=== PATIENT | female | born 1985 | race Caucasian/White ===

== ENCOUNTER → 2020-02-22 | Outpatient (CLI) | payer SELFPAY ==
[~2020-02-22] MED LIST: CATHETER FLUSH 10 ML SYR IV PRN
--- NOTE | 2020-02-22 14:42 | Diagnostic Imaging Report ---
INDICATION: Right upper quadrant pain. Patient was administered 5.0 mCi technetium 99m Choletec intravenously and imaging over the abdomen was performed. After 60 minutes, patient ingested one can of Ensure and the gallbladder ejection fraction was calculated. There is homogeneous uptake of activity by the liver with prompt reflux of activity into the gallbladder and common duct. There is normal passage of activity into the small bowel. Gallbladder ejection fraction is normal at 55%. IMPRESSION: Normal HIDA scan and gallbladder ejection fraction. Dictated by: Dictated on workstation # [id number]
== END ==
LOC: CARD 11:54
PROVIDERS: ATTEND Family Medicine
DX: R10.11 Right upper quadrant pain (principal)
CPT/HCPCS: 78227; A9537

== ENCOUNTER 2021-01-04 00:43 | Emergency (ER) | payer SELFPAY ==
[~2021-01-04] VITALS: Ht 165.1 cm; Wt 86.4 kg
[2021-01-04 01:36] LABS: BILIRUBIN,URINE NEGATIVE (NEGATIVE); CLARITY,URINE CLEAR; COLOR,URINE YELLOW; GLUCOSE, URINE (UA) NEGATIVE (NEGATIVE); KETONES,URINE NEGATIVE (NEGATIVE); LEUKOCYTE ESTERASE ,URINE NEGATIVE (NEGATIVE); NITRITE,URINE NEGATIVE (NEGATIVE); PH,URINE 5.5 (5-9); PROTEIN,URINE NEGATIVE (NEGATIVE)
[2021-01-04 01:42] LABS: BACTERIA,URINE TRACE /HPF; RBC,URINE RARE /HPF; SQUAMOUS EPITHELIAL CELL,UR 0-2 /HPF; WBC,URINE RARE /HPF
[2021-01-04] MEDS ORDERED: FAMOTIDINE 20MG/2ML IV (PEPCID) IV STA (01:49)
--- NOTE | 2021-01-04 01:55 | ED Abdominal Pain ---
General Chief Complaint: Abdominal/GI Problems Stated Complaint: NAUSEA,VOMITING,BACK & STOMACH PAIN Nursing Triage Note: PRESENTS TO ROOM #6 VIA POV ACCOMPANIED BY FAMILY WITH C/O ABD DISCOMFORT NAUSEA ET VOMITING. STATES AFTER PO CONSUMPTION SHE EXPERIENCES NAUSEA ET VOMITING SHORTLY AFTER. STATES DISCOMFORT TO R UPPER QUADRANT RADIATING THROUGH TO BACK. STATES SX BEGAN ON 12/28/20. Sepsis Screen: No Definite Risk Source of Information: Patient Exam Limitations: No Limitations History of Present Illness Date Seen by Provider: Jan 04, 2021 Time Seen by Provider: 01:30 Initial Comments Patient presents ER by private conveyance from home with her mother and [employer] she has been having some pain throughout the day has been going on for the past several days anytime she eats something does not know what she eats. It was epigastric right upper quadrant and radiates through directly to through to her back at the same level. A year ago she had her gallbladder worked up with an ultrasound and HIDA scan by Dr. Jenkins which was unremarkable and no mention of stones. She does not drink alcohol significantly and does not have a history of pancreatitis. She has no history of indigestion or GERD. She took some Excedrin as well as a Percocet which did help her get some sleep last night. She rates the pain is about a 5 out of 10 presently constant. No change with positioning. Bowels moving normally no blood in the urine no history of kidney stones no dysuria dyspareunia or discharge. Allergies and Home Medications Allergies Coded Allergies: hydrocodone (Unverified Allergy, Unknown, 02/22/20) Patient Home Medication List Home Medication List Reviewed: Yes Review of Systems Review of Systems Constitutional: No chills, No diaphoresis EENTM: No Blurred Vision, No Double Vision Respiratory: Denies Cough, Denies Shortness of Air Cardiovascular: Denies Chest Pain, Denies Lightheadedness Gastrointestinal: See HPI; Denies Abdomen Distended; Abdominal Pain; Denies Blood Streaked Stools, Denies Constipated, Denies Diarrhea; Nausea Genitourinary: Denies Burning, Denies Discharge Musculoskeletal: No back pain, No joint pain All Other Systems Reviewed Negative Unless Noted: Yes Past Unsmhyz-Ygjayi-Ysoukf Hx Patient Social History Alcohol Use: Denies Use Smoking Status: Never a Smoker Recent Infectious Disease Expo: No Physical Exam Vital Signs Vital Signs - First Documented 01/04/21 01:15 Temp 36.1 Pulse 90 Resp 18 B/P (MAP) 136/92 (107) Pulse Ox 99 O2 Delivery Room Air Capillary Refill : Less Than 3 Seconds Height/Weight/BMI Height: '" Weight: lbs. oz. kg; 31.00 BMI Method: General Appearance: WD/WN, mild distress HEENT: PERRL/EOMI, pharynx normal Neck: full range of motion, normal inspection Respiratory: lungs clear, normal breath sounds, no respiratory distress, no accessory muscle use Cardiovascular: normal peripheral pulses, regular rate, rhythm, no edema Peripheral Pulses: 2+ Radial Pulses (R), 2+ Radial Pulses (L) Gastrointestinal: normal bowel sounds (Active), soft, tenderness (Mild epigastric and right upper quadrant tenderness without Enciso sign, Rovsing sign, McBurney's point tenderness, mesenteric signs.) Extremities: normal range of motion, normal inspection, normal capillary refill Neurologic/Psychiatric: alert, normal mood/affect, oriented x 3 Skin: normal color, warm/dry Progress/Results/Core Measures Results/Orders Lab Results Laboratory Tests Test 01/04/21 01:30 01/04/21 01:35 Range/Units Urine Color YELLOW Urine Clarity CLEAR Urine pH 5.5 5-9 Urine Specific Mammoth >=1.030 1.016-1.022 Urine Protein NEGATIVE NEGATIVE Urine Glucose (UA) NEGATIVE NEGATIVE Urine Ketones NEGATIVE NEGATIVE Urine Nitrite NEGATIVE NEGATIVE Urine Bilirubin NEGATIVE NEGATIVE Urine Urobilinogen 0.2 < = 1.0 MG/DL Urine Leukocyte Esterase NEGATIVE NEGATIVE Urine RBC (Auto) TRACE-I NEGATIVE Urine RBC RARE /HPF Urine WBC RARE /HPF Urine Squamous Epithelial Cells 0-2 /HPF Urine Crystals NONE /LPF Urine Bacteria TRACE /HPF Urine Casts NONE /LPF Urine Mucus SMALL H /LPF Urine Culture Indicated NO White Blood Count 12.4 H 4.3-11.0 10^3/uL Red Blood Count 4.31 3.80-5.11 10^6/uL Hemoglobin 13.0 11.5-16.0 g/dL Hematocrit 40 35-52 % Mean Corpuscular Volume 93 80-99 fL Mean Corpuscular Hemoglobin 30 25-34 pg Mean Corpuscular Hemoglobin Concent 32 32-36 g/dL Red Cell Distribution Width 13.2 10.0-14.5 % Platelet Count 273 130-400 10^3/uL Mean Platelet Volume 9.9 9.0-12.2 fL Immature Granulocyte % (Auto) 1 % Neutrophils (%) (Auto) 52 42-75 % Lymphocytes (%) (Auto) 27 12-44 % Monocytes (%) (Auto) 7 0-12 % Eosinophils (%) (Auto) 14 H 0-10 % Basophils (%) (Auto) 0 0-10 % Neutrophils # (Auto) 6.4 1.8-7.8 10^3/uL Lymphocytes # (Auto) 3.4 1.0-4.0 10^3/uL Monocytes # (Auto) 0.8 0.0-1.0 10^3/uL Eosinophils # (Auto) 1.7 H 0.0-0.3 10^3/uL Basophils # (Auto) 0.1 0.0-0.1 10^3/uL Immature Granulocyte # (Auto) 0.1 0.0-0.1 10^3/uL Neutrophils % (Manual) 55 % Lymphocytes % (Manual) 33 % Monocytes % (Manual) 3 % Eosinophils % (Manual) 8 % Basophils % (Manual) 0 % Band Neutrophils 1 % Blood Morphology Comment NORMAL Sodium Level 140 135-145 MMOL/L Potassium Level 4.5 3.6-5.0 MMOL/L Chloride Level 105 98-107 MMOL/L Carbon Dioxide Level 24 21-32 MMOL/L Anion Gap 11 5-14 MMOL/L Blood Urea Nitrogen 13 7-18 MG/DL Creatinine 0.88 0.60-1.30 MG/DL Estimat Glomerular Filtration Rate > 60 BUN/Creatinine Ratio 15 Glucose Level 105 70-105 MG/DL Calcium Level 9.5 8.5-10.1 MG/DL Corrected Calcium 9.3 8.5-10.1 MG/DL Total Bilirubin 0.4 0.1-1.0 MG/DL Aspartate Amino Transf (AST/SGOT) 26 5-34 U/L Alanine Aminotransferase (ALT/SGPT) 18 0-55 U/L Alkaline Phosphatase 72 40-136 U/L C-Reactive Protein High Sensitivity 1.10 H 0.00-0.50 MG/DL Total Protein 7.8 6.4-8.2 GM/DL Albumin 4.2 3.2-4.5 GM/DL Lipase 22 8-78 U/L My Orders Orders - RAYA,DAMARIS J Ua Culture If Indicated (01/04/21 00:53) Urine Bedside (01/04/21 00:53) Cbc With Automated Diff (01/04/21 01:49) Comprehensive Metabolic Panel (01/04/21 01:49) Hs C Reactive Protein (01/04/21 01:49) Lipase (01/04/21 01:49) Ed Iv/Invasive Line Start (01/04/21 01:49) Ns Iv 1000 Ml (Sodium Chloride 0.9%) (01/04/21 02:00) Lidocaine 2% Viscous 15 Ml (Xylocaine Vi (01/04/21 02:00) Antacid Suspension (Mylanta Suspension (01/04/21 02:00) Famotidine Injection (Pepcid Injection) (01/04/21 01:49) Manual Differential (01/04/21 01:35) Medications Given in ED Current Medications Medications Dose Ordered Sig/Jaime Route Start Time Stop Time Status Last Admin Dose Admin Al Hydrox/Mg Hydrox/Simethicone 30 ml ONCE ONCE PO 01/04/21 02:00 01/04/21 02:01 DC 01/04/21 02:07 30 ML Lidocaine HCl 15 ml ONCE ONCE PO 01/04/21 02:00 01/04/21 02:01 DC 01/04/21 02:07 15 ML Vital Signs/I&O 01/04/21 01:15 Temp 36.1 Pulse 90 Resp 18 B/P (MAP) 136/92 (107) Pulse Ox 99 O2 Delivery Room Air Blood Pressure Mean: 107 Progress Progress Note #1: Time: 01:59 Progress Note Differential includes PUD, gastritis, pancreatitis, biliary system or gallbladder. We will start with a GI cocktail and see if this helps her discomfort. She is not having any nausea at this time. Give her a liter of fluids. Discussed imaging and at this time she has a septic vital signs and nonsurgical abdominal exam. Progress Note #2: Time: 02:26 Progress Note Patient has no significant elevation in white count or CRP. She is not tender over her right lower quadrant. Sinusitis not completely ruled out however there is not very strong evidence for it. She does not have a surgical abdomen nor did she have septic vital signs. She received little to no relief from the GI cocktail. I still think she needs further work-up of her right upper quadrant and since ultrasound is not available at this time we are going to refer her to Dr. Franco, general surgery outpatient for more thorough evaluation. Return precautions were given. We will send her home with some Percocet and ondansetron to help manage symptoms. Departure Impression Primary Impression: Right upper quadrant abdominal pain Disposition: HOME, SELF-CARE Condition: Stable Departure-Patient Inst. Decision time for Depature: 02:15 Referrals: THIERRY FRANCO DANIEL J MD (PCP/Family) Primary Care Physician Patient Instructions: ANYA Murrell (DC) Add. Discharge Instructions: Encourage you to change your diet to avoid greasy, spicy foods or dairy, red meats etc. Stick to white meats, dark green leafy vegetables, high-fiber. Prilosec 40 mg daily for the next 2 to 4 weeks. Tums, Rolaids, Maalox, Mylanta etc. as necessary for stomach pain. Tylenol 650 mg every 8 hours as necessary for pain. Percocet 1 tablet every 4 hours for severe breakthrough pain. Ondansetron/Zofran 1 tablet every 6 hours under the tongue as necessary for nausea and/or vomiting. Return to the ER for fever, intractable pain, nausea or other worrisome symp toms. During business hours call Dr. Franco, general surgery and ask for a follow-up appointment within the next week or so to continue working up your right upper quadrant abdominal pain. All discharge instructions reviewed with patient and/or family. Voiced understanding. Scripts Omeprazole Magnesium (Prilosec Otc) 20 Mg Tablet.dr 40 MG PO DAILY for 30 Days, #60 TAB 0 Refills Prov: DAMARIS DOS SANTOS 01/04/21 Oxycodone HCl/Acetaminophen (Percocet 5-325 mg Tablet) 1 Each Tablet 1 TAB PO Q4H for PAIN-MODERATE MDD 6 TABS for 3 Days, #15 TAB 0 Refills Prov: DAMARIS DOS SANTOS 01/04/21 Ondansetron (Ondansetron Odt) 4 Mg Tab.rapdis 4 MG PO Q6H PRN for NAUSEA/VOMITING, #15 TAB 0 Refills Prov: DAMARIS DOS SANTOS 01/04/21 Copy Copies To 1: THIERRY FRANCO TITUS J Jan 04, 2021 01:55
[2021-01-04 01:57] LABS: BASOPHILS # (AUTO) 0.1 10^3/uL (0.0-0.1); BASOPHILS % (AUTO) 0 % (0-10); EOSINOPHILS # (AUTO) 1.7 10^3/uL (0.0-0.3); EOSINOPHILS % (AUTO) 14 % (0-10); HEMATOCRIT 40 % (35-52); LYMPHOCYTES # (AUTO) 3.4 10^3/uL (1.0-4.0); LYMPHOCYTES % (AUTO) 27 % (12-44); MEAN CORPUSCULAR HEMOGLOBIN 30 pg (25-34); MEAN CORPUSCULAR HGB CONC 32 g/dL (32-36); MEAN CORPUSCULAR VOLUME 93 fL (80-99); MEAN PLATELET VOLUME 9.9 fL (9.0-12.2); MONOCYTES # (AUTO) 0.8 10^3/uL (0.0-1.0); MONOCYTES % (AUTO) 7 % (0-12); NEUTROPHILS # (AUTO) 6.4 10^3/uL (1.8-7.8); NEUTROPHILS % (AUTO) 52 % (42-75); PLATELET COUNT 273 10^3/uL (130-400); WHITE BLOOD COUNT 12.4 10^3/uL (4.3-11.0)
[2021-01-04] MEDS ORDERED: NS IV 1000 ML 1,000 ML IV SCH (02:00)
[2021-01-04] MEDS ORDERED: LIDOCAINE 2% VISCOUS 15 ML UDC PO ONE (02:00)
[2021-01-04] MEDS ORDERED: ANTACID SUSP 30 ML UDC (MYLANTA) PO ONE (02:00)
[2021-01-04 02:10] LABS: ALANINE AMINOTRANSFERASE 18 U/L (0-55); ALBUMIN 4.2 GM/DL (3.2-4.5); ALKALINE PHOSPHATASE 72 U/L (40-136); BILIRUBIN,TOTAL 0.4 MG/DL (0.1-1.0); BUN/CREATININE RATIO 15; CALCIUM 9.5 MG/DL (8.5-10.1); CARBON DIOXIDE 24 MMOL/L (21-32); CHLORIDE 105 MMOL/L (98-107); CREATININE SERUM 0.88 MG/DL (0.60-1.30); GFR ESTIMATED > 60; GLUCOSE 105 MG/DL (70-105); LIPASE 22 U/L (8-78); POTASSIUM 4.5 MMOL/L (3.6-5.0); SODIUM 140 MMOL/L (135-145); TOTAL PROTEIN 7.8 GM/DL (6.4-8.2)
[2021-01-04 02:13] LABS: BAND NEUTROPHILS 1 %; BASOPHILS % (MANUAL) 0 %; EOSINOPHILS % (MANUAL) 8 %; LYMPHOCYTES % (MANUAL) 33 %; MONOCYTES % (MANUAL) 3 %; NEUTROPHILS % (MANUAL) 55 %; RBC MORPH NORMAL
[2021-01-04] MEDS ORDERED: RX-OXYCODONE/APAP 5-325 MG #4 TAB PK PO PRN (02:30)
[2021-01-04] MEDS ORDERED: OMEP20TA33 PO (02:31)
[2021-01-04] MEDS ORDERED: ONDA4TAB11 PO (02:31)
[2021-01-04] MEDS ORDERED: OXYC1TAB87 PO (02:31)
[2021-01-04 02:38] VITALS: BP 120/89
== END 2021-01-04 02:38 | disposition home or self-care (01) ==
LOC: EDUNIT# 00:43 → ER 00:47
DX: R10.11 Right upper quadrant pain (principal); Z88.5 Allergy status to narcotic agent
CPT/HCPCS: 36415; 80053; 81000; 83690; 84703; 85007; 85027; 86141

== ENCOUNTER → 2021-01-13 | Outpatient (CLI) | payer OTHER ==
[~2021-01-13] MED LIST changes: -CATHETER FLUSH 10 ML SYR IV PRN; +OMEP20TA33 PO; +ONDA4TAB11 PO; +OXYC1TAB87 PO
--- NOTE | 2021-01-13 09:34 | Diagnostic Imaging Report ---
PROCEDURE: US Gallbladder. TECHNIQUE: Multiple real-time grayscale images were obtained over the right upper quadrant in various projections. INDICATION: Right upper quadrant pain. The liver is normal in size at 14 cm. No discrete liver mass is detected. Portal vein is patent and shows normal direction of flow. Gallbladder does appear to be partially contracted but no gallstones or sludge are identified. There is no wall thickening or biliary duct dilatation. Visualized pancreas unremarkable. Aorta is non-aneurysmal. IVC is patent. Right kidney is without calculi or hydronephrosis. There is no ascites. IMPRESSION: No evidence of cholelithiasis or acute cholecystitis. Dictated by: Dictated on workstation # [id number]
== END ==
LOC: RAD 08:00
PROVIDERS: ATTEND Surgery
DX: R10.11 Right upper quadrant pain (principal)
CPT/HCPCS: 76705

== ENCOUNTER → 2021-01-26 | Outpatient (CLI) | payer OTHER ==
[~2021-01-26] MED LIST changes: +CATHETER FLUSH 10 ML SYR IV PRN
--- NOTE | 2021-01-26 12:36 | Diagnostic Imaging Report ---
INDICATION: Right upper quadrant pain. The patient was administered 4.6 mCi technetium 99m Choletec intravenously and imaging over the abdomen was performed. At 60 minutes, the patient ingested a can of Ensure and a gallbladder ejection fraction was calculated. There is homogeneous uptake of activity by the liver with prompt excretion of activity into the common duct and gallbladder. Normal passage of activity into the small bowel is noted. There does appear to be some very mild reflux of activity into the stomach. Gallbladder ejection fraction is normal at 41%. IMPRESSION: 1. Patent cystic duct and common bile duct. 2. Normal gallbladder ejection fraction of 41%. 3. Mild gastric bile reflux. Dictated by: Dictated on workstation # [id number]
== END ==
LOC: CARD 10:00
PROVIDERS: ATTEND Surgery
DX: K21.9 Gastro-esophageal reflux disease without esophagitis (principal)
CPT/HCPCS: 78227; A9537

== ENCOUNTER 2021-02-03 06:04 | Outpatient (CLI) | payer OTHER ==
[~2021-02-03] VITALS: Ht 162.6 cm; Wt 84.1 kg
[~2021-02-03 06:04] MED LIST changes: -CATHETER FLUSH 10 ML SYR IV PRN
[2021-02-07] MEDS ORDERED: SERT-413 PO (09:07)
[2021-02-09] MEDS ORDERED: OXYC1TAB87 PO (14:37)
== END 2021-02-07 09:35 | disposition home or self-care (01) ==
LOC: PREOP 06:04
PROVIDERS: ATTEND Surgery
DX: Z01.818 Encounter for other preprocedural examination (principal)

== ENCOUNTER 2021-02-09 11:04 | Day surgery (SDC) | payer OTHER ==
[~2021-02-09] VITALS: Ht 162 cm; Wt 84.1 kg
[2021-02-09] VITALS (12 sets, daily range): BP systolic 107–126; BP diastolic 62–83
[~2021-02-09 11:04] MED LIST changes: +SERT-413 PO
[2021-02-09] MEDS ORDERED: ceFAZolin 2 GM IV Premixed 50 ML IV ONE (11:15)
--- NOTE | 2021-02-09 11:25 | Progress Note-Pre Operative ---
Pre-Operative Progress Note H&P Reviewed The H&P was reviewed, patient examined and no changes noted. Date Seen by Provider: Feb 09, 2021 Time Seen by Provider: : Date H&P Reviewed: Feb 09, 2021 Time H&P Reviewed: 11:25 Pre-Operative Diagnosis: right upper quadrant abd pain, biliary dyskinesia THIERRY FRANCO DO Feb 09, 2021 11:25
[2021-02-09] MEDS: LACTATED RINGERS 1,000 ML IV PRN ×2 (11:37→14:36)
[2021-02-09] MEDS ORDERED: LIDOCAINE/EPI 1%-1:100,000 (XYLOCAINE) 20ML ONE (12:26)
[2021-02-09] MEDS ORDERED: IOPAMIDOL 61% 30 ML (ISOVUE 300) VIAL ONE (12:26)
[2021-02-09] MEDS ORDERED: ONDANSETRON 4 MG/2 ML (SDV) Z0FRAN ONE (13:13)
[2021-02-09] MEDS ORDERED: MIDAZOLAM 2 MG/2 ML (VERSED) VIAL ONE (13:13)
[2021-02-09] MEDS ORDERED: LIDOCAINE PF 2% 5 ML (XYLOCAINE) VIAL ONE (13:13)
[2021-02-09] MEDS ORDERED: SEVOFLURANE (ULTANE) 15 ML INHAL SOLN ONE (13:13)
[2021-02-09] MEDS ORDERED: GLYCOPYRROLATE 0.2 MG/ML (ROBINUL) 2 ML VIAL ONE (13:13)
[2021-02-09] MEDS ORDERED: ROCURONIUM 10 MG/ML 5 ML SYRINGE IV ONE (13:13)
[2021-02-09] MEDS ORDERED: proPOfol 200 MG/20 ML (DIPRIVAN) VIAL IV ONE (13:13)
[2021-02-09] MEDS ORDERED: fentaNYL INJ 100 MCG/2 ML AMP ONE ×2 (13:13→14:07)
[2021-02-09] MEDS ORDERED: NEOSTIGMINE 3 MG/3 ML VIAL ONE (13:13)
[2021-02-09] MEDS ORDERED: OXYC1TAB87 PO (14:37)
--- NOTE | 2021-02-09 14:38 | Discharge Inst-Simple/Standard ---
Discharge Inst-Standard Discharge Medications New, Converted or Re-Newed RX: Transmitted to Pharmacy Patient Instructions/Follow Up Plan of Care/Instructions/FU: 2 weeks Van Activity as Tolerated: No Discharge Diet: Regular Diet Other Inst to Patient Follow up Appt: Make appointment for 2 weeks. Instructions: No lifting greater than 10 pounds. No strenuous activity. May shower in 24 hours, no tub bath or soaking. Use incentive spirometer at home as directed. No Smoking Skin/Wound Care: You have special glue over incision, it will fall off on it's own. Symptoms to Report: Appetite Changes, Extremity Discoloration, Numbness/Tingling, Swelling Increased, Bleeding Excessive, Eyesight Changes, Pain Increased, Urine Color Change, Constipation(Persistent), Fever over 101 degree F, Pain/Pressure in chest, Urinating Difficulty, Cough Up/Vomit Blood, Heart Beat Irreg/Pounding, Pain/Pressure in jaw, Vaginal Bleeding Increase, Cramps in feet or legs, Lightheadedness, Pain/Pressure in shoulder, Diarrhea(Persistent), Memory Changes Suddenly, Questions/Concerns, Weight gain consecutive days, Dizziness/Fainting, Nausea/Vomiting, Shortness of Breath, Weight gain over 2 pounds. If eyes or skin turn yellow notify physician. If questions or concerns contact your physician Or seek help at emergency department. THIERRY FRANCO DO Feb 09, 2021 14:38
--- NOTE | 2021-02-09 14:40 | Progress Note-Post Operative ---
Post-Operative Progess Note Surgeon (s)/[employer] (s) Surgeon THIERRY FRANCO DO [employer]: Dr. Epperson to assist in retraction dissection and closure Pre-Operative Diagnosis right upper quadrant abd pain, biliary dyskinesia Post-Operative Diagnosis same Procedure & Operative Findings Date of Procedure 02/09/21 Procedure Performed/Findings PROCEDURE: Laparoscopic cholecystectomy with intraoperative cholangiogram. COMPLICATIONS: None. PROCEDURE: The patient was taken to the operating suite and was prepped and draped in sterile fashion. A surgical pause was performed. Just superior to the umbilicus, a 12 mm incision was made. Dissection was taken down to the fascia, which was then scored and grasped with a Lucia and the abdomen was then entered. A 0 Vicryl suture was placed in a [id number] fashion and a [place] trocar was placed and secured. Pneumoperitoneum was achieved. A 5mm trochar place in the subxyphoid and 2 in the right upper quadrant. The gallbladder was then grasped and elevated. Adhesions were taken down with blunt and cautery dissection. The cystic duct, and cystic artery were then dissected out. Clip was placed on the distal portion of the cystic duct which was then partially transected. An arrow catheter was inserted into the duct. The cholangiogram was then performed. No filing defects and contrast made its way into the duodenum. Catheter removed. Clips were placed on proximal portion of the cystic duct and then the duct was then transected. Clips were placed along the proximal and distal portion of the cystic artery which was then transected. Hook cautery was used to dissect the gallbladder from the gallbladder fossa achieving hemostasis. The gallbladder was placed in an Endobag and removed through the 12 mm trocar site. The abdomen was then reinspected. Copious amounts of irrigation were used to irrigate the abdomen and there were no signs of active bleeding. Hemostasis had been achieved. The 12 mm fascial defect was then closed with 0 Vicryl suture that had been placed in a [id number] fashion. The abdomen was then desufflated, the trocars were removed. The abdomen was then washed and dried. The skin was then closed using 4-0 Monocryl in a subcuticular fashion. The abdomen was washed and dried and Skin Affix was place over incisions. Patient tolerated the procedure well without any complications and was taken to the recovery room in stable condition. Anesthesia Type general Estimated Blood Loss Estimated blood loss (mL): min Specimens/Packing Specimens Removed gallbladder THIERRY FRANCO DO Feb 09, 2021 14:40
[2021-02-09] MEDS ORDERED: morphine INJ 10 MG/ML 1ML (SYR OR VIAL) IVP ONE (14:45)
[2021-02-09] MEDS ORDERED: HYDROmorphone 2 MG/ML VIAL (DILAUDID) IV ONE (14:45)
[2021-02-09] MEDS ORDERED: ONDANSETRON 4 MG/2 ML (SDV) Z0FRAN IVP PRN (14:45)
--- NOTE | 2021-02-09 15:25 | Anesthesia-General Post-Op ---
General Patient Condition Mental Status/LOC: Same as Preop Cardiovascular: Satisfactory Nausea/Vomiting: Absent Respiratory: Satisfactory Pain: Controlled Complications: Absent Post Op Complications Complications None Follow Up Care/Instructions Patient Instructions None needed. Anesthesia/Patient Condition Patient Condition Patient is doing well, no complaints, stable vital signs, no apparent adverse anesthesia problems. ARABELLA CASTRO DO Feb 09, 2021 15:25
--- NOTE | 2021-02-09 16:41 | Diagnostic Imaging Report ---
INDICATION: Fluoroscopy during intraoperative cholangiogram. Fluoroscopy was provided in the OR during intraoperative cholangiogram. 17 seconds of fluoroscopic time was utilized. 100 images were obtained demonstrating contrast being injected via cystic duct remnant. Intrahepatic and extrahepatic bile ducts are patent. No filling defects are seen to suggest retained stone. Contrast passes into the duodenum. IMPRESSION: Fluoroscopy during intraoperative cholangiogram. Dictated by: Dictated on workstation # [id number]
== END 2021-02-09 16:35 ==
LOC: SDC 11:04
PROVIDERS: ATTEND Surgery
DX: K82.8 Other specified diseases of gallbladder (principal); K81.1 Chronic cholecystitis; K21.9 Gastro-esophageal reflux disease without esophagitis; F41.9 Anxiety disorder, unspecified; F32.9 Major depressive disorder, single episode, unspecified; Z79.899 Other long term (current) drug therapy; Z82.49 Family history of ischemic heart disease and other diseases of the circulatory system; Z83.3 Family history of diabetes mellitus; Z83.6 Family history of other diseases of the respiratory system
CPT/HCPCS: 76000; 84703; 87081; 88304; 94664